=== PATIENT | female | born 2000 | race Caucasian/White ===

== ENCOUNTER 2019-08-20 20:38 | Emergency (ER) | payer BC ==
[2019-08-20] MEDS ORDERED: oxyCODONE/Acetamin 5/325 MG* TAB PO ONE (22:37)
[2019-08-20] MEDS ORDERED: Cyclobenzaprine TAB* 10 MG PO ONE (22:37)
--- NOTE | 2019-08-20 22:46 | ED ---
Back Pain - HPI Summary HPI Summary: 18-year-old male presents with sciatic pain for the past week. States that she injured her sciatic nerve many months ago during an accident. She also has a left labial tear. States she did see PT for this before. She has been having increasing pain but no injury. Admits numbness and tingling down left leg. Pain to left leg. No urinary symptoms. No loss of bowel or bladder. No saddle anesthesias. Denies any weakness. Hasn't taking ibuprofen for the pain. - History of Current Complaint Chief Complaint: EDBackInjuryPain Stated Complaint: SEVERE BACK PAIN PER PATIENT Time Seen by Provider: 08/20/19 22:22 Pain Intensity: 6 - Allergies/Home Medications Allergies/Adverse Reactions: Allergies Allergy/AdvReac Type Severity Reaction Status Date / Time No Known Allergies Allergy Verified 08/20/19 20:46 PMH/Surg Hx/FS Hx/Imm Hx Endocrine/Hematology History: Denies: Hx Anticoagulant Therapy Respiratory History: Denies: Hx Asthma Infectious Disease History: No Infectious Disease History: Denies: Traveled Outside the [place] in Last 30 Days - Family History Known Family History: Positive: Non-Contributory - Social History Alcohol Use: Occasionally Substance Use Type: Reports: Marijuana Smoking Status (MU): Never Smoked Tobacco Review of Systems Negative: Fever Negative: Chest Pain Negative: Shortness Of Breath Positive: Myalgia - back pain All Other Systems Reviewed And Are Negative: Yes Physical Exam Triage Information Reviewed: Yes Vital Signs On Initial Exam: Initial Vitals Temp Pulse Resp BP Pulse Ox 99.3 F 100 16 131/96 100 08/20/19 20:40 08/20/19 20:40 08/20/19 20:40 08/20/19 20:40 08/20/19 20:40 Vital Signs Reviewed: Yes Appearance: Positive: Well-Appearing Skin: Positive: Warm, Dry Head/Face: Positive: Normal Head/Face Inspection Eyes: Positive: Normal, Conjunctiva Clear ENT: Positive: Pharynx normal Respiratory/Lung Sounds: Positive: Clear to Auscultation, Breath Sounds Present Cardiovascular: Positive: Normal, RRR Musculoskeletal: Positive: Limited @ - back, Other - pos SLR left, good pulses, sensation grossly intact, Neurological: Positive: Babinski Bilateral - normal Psychiatric: Positive: Normal Procedures - Sedation Patient Received Moderate/Deep Sedation with Procedure: No Diagnostics - Vital Signs Vital Signs Temp Pulse Resp BP Pulse Ox 08/20/19 20:40 99.3 F 100 16 131/96 100 - Laboratory Lab Statement: Any lab studies that have been ordered have been reviewed, and results considered in the medical decision making process. Re-Evaluation - Re-Evaluation First Eval Re-Evaluation Time: 23:45 Change: Improved Comment: feeling better Back Pain Course/Dx - Course Course Of Treatment: 18-year-old male presents with sciatic pain for the past week. States that she injured her sciatic nerve many months ago during an accident. She also has a left labial tear. States she did see PT for this before. She has been having increasing pain but no injury. Admits numbness and tingling down left leg. Pain to left leg. No urinary symptoms. No loss of bowel or bladder. No saddle anesthesias. Denies any weakness. Hasn't taking ibuprofen for the pain. On exam tenderness left over left SI joint. Positive straight leg raise. Neurovascular intact. Gave muscle relaxer pain medication and feeling better. We'll prescribe steroids and muscle relaxer. Told to follow up with PT. Patient understands agrees with plan. - Diagnoses Differential Diagnosis/HQI/PQRI: Positive: Fracture, Herniated Disc, Strain, Sprain Provider Diagnoses: Back pain Discharge ED - Sign-Out/Discharge Documenting (check all that apply): Patient Departure - Discharge Plan Condition: Good Disposition: HOME Prescriptions: Cyclobenzaprine TAB* [Flexeril 10 MG TAB*] 10 mg PO TID PRN #21 tab PRN Reason: Pain - Moderate methylPREDNISolone [Medrol Dosepak 4 MG*] 4 mg PO .SEE VANESSA INSTRUCTION #1 packet Patient Education Materials: Sciatica (ED) Referrals: [facility] [place] [facility]IAN REFERRAL [Outside] [facility] [place] Physical therapy,PT [Medical Doctor] - Additional Instructions: Follow directions on package for Medrol pack Take muscle relaxers three times a day Use ibuprofen or Tylenol for pain every 6 hours ice/heat area, move as much as possible Follow up with PT establish care with primary Return to ED if develop any new or worsening symptoms - Billing Disposition and Condition Condition: GOOD Disposition: Home
[2019-08-21 00:51] VITALS: BP 118/79
== END 2019-08-21 00:50 | disposition home or self-care (01) ==
LOC: ED 20:38
DX: M54.9 Dorsalgia, unspecified (principal); R20.0 Anesthesia of skin; R20.2 Paresthesia of skin
CPT/HCPCS: 99282; A9270-GY